=== PATIENT | female | born 1990 | race Caucasian/White ===

== ENCOUNTER 2018-12-12 20:06 | Emergency (ER) | payer OTHER, BC ==
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
== END 2018-12-12 21:10 | disposition home or self-care (01) ==
LOC: MW.ED 20:06
DX: Z04.1 Encounter for examination and observation following transport accident (principal); Z79.82 Long term (current) use of aspirin; Z3A.30 30 weeks gestation of pregnancy
CPT/HCPCS: 99283; 99284-25